=== PATIENT | female | born 1980 | race Caucasian/White ===

== ENCOUNTER 2021-01-25 11:15 | Outpatient (CLI) | payer BC ==
[2016-09-25 06:26] VITALS: BMI 18.8
[~2021-01-25 11:15] MED LIST: AMBIEN10 MG PO; IBUPROFEN800 MG PO; JUNEL FE 1.5 M1 EACH PO; VITAMIN B-1000 MCG/M IM; ZANAFLEX4 MG PO
== END 2021-01-25 11:45 | disposition home or self-care (01) ==
LOC: D.MAMMO 11:15
PROVIDERS: ATTEND Family Medicine
DX: Z12.31 Encounter for screening mammogram for malignant neoplasm of breast (principal); Z01.419 Encounter for gynecological examination (general) (routine) without abnormal findings